=== PATIENT | male | born 1975 ===

== ENCOUNTER 2025-06-05 11:34 | Emergency (ER) | payer OTHER ==
[2025-06-05] MEDS ORDERED: Sulfameth/Trimethoprim DS 800-160mg TAB ONE (12:15)
== END 2025-06-05 13:06 ==
LOC: ERS 11:34
DX: L03.115 Cellulitis of right lower limb (principal); E11.9 Type 2 diabetes mellitus without complications; Z87.891 Personal history of nicotine dependence; Z79.899 Other long term (current) drug therapy; Z79.84 Long term (current) use of oral hypoglycemic drugs
CPT/HCPCS: 93005; 99283